=== PATIENT | female | born 1970 | race Caucasian/White ===

== ENCOUNTER 2018-08-17 18:35 | Emergency (ER) | payer OTHER ==
[~2018-08-17] VITALS: Ht 162.6 cm; Wt 64.0 kg
[2018-08-17 18:58] LABS: URINE BILIRUBIN NEGATIVE (Negative); URINE BLOOD TRACE (Negative); URINE CLARITY CLEAR; URINE COLOR YELLOW; URINE GLUCOSE-RANDOM NEGATIVE (Negative); URINE KETONES TRACE (Negative); URINE LEUKOCYTES-REFLEX 1+ (Negative); URINE PROTEIN 1+ (Negative); URINE SPECIFIC GRAVITY 1.025 (1.005-1.030)
[2018-08-17 19:02] LABS: URINE NITRITE-REFLEX POSITIVE (Negative)
[2018-08-17 19:05] LABS: BACTERIA-REFLEX >30 Many /HPF (None Seen); CASTS None Seen /LPF (None Seen); CRYSTALS None Seen /LPF (None Seen); SQUAMOUS NONE SEEN /LPF (0-3); URINE RBC None Seen /HPF (0-2); URINE WBC-REFLEX 6-15 Few /HPF (0-5)
[2018-08-17 19:15] LABS: ABSOLUTE EOSINOPHILS 0.1 thou/uL (0.0-0.7); ABSOLUTE LYMPHOCYTES 1.4 thou/uL (0.8-5.3); ABSOLUTE MONOCYTES 0.5 thou/uL (0.0-1.2); ABSOLUTE NEUTROPHILS 4.3 thou/uL (1.6-8.1); BASOPHILS 0.6 %; EOSINOPHILS 1.9 %; HEMATOCRIT 29.2 % (37.0-47.0); HEMOGLOBIN 8.7 gm/dL (12.0-15.0); LYMPHOCYTES 21.9 %; MCH 19.3 pg (26.0-34.0); MCHC 29.9 g/dL (28.0-37.0); MCV 64.7 fL (80.0-100.0); MONOCYTES 7.2 %; MPV 8.6 fl. (7.2-11.1); NUCLEATED RBCS 0 /100WBC; PLATELET COUNT* 312 thou/uL (150-400); POLYS 68.4 %; RBC 4.51 mil/uL (4.20-5.00); WBC 6.3 thou/uL (4.0-11.0)
[2018-08-17 19:26] LABS: ANION GAP 6 mmol/L (7-16); BUN 7 mg/dL (7-18); CALCIUM 8.1 mg/dL (8.5-10.1); CHLORIDE 107 mmol/L (98-107); CO2 29 mmol/L (21-32); CREATININE 0.6 mg/dL (0.6-1.3); GLUCOSE 82 mg/dL (70-99); SODIUM 142 mmol/L (136-145)
[2018-08-17 19:26] LABS: AMP/METHAMP POSITIVE (Negative); BARBITURATES Negative (Negative); BENZODIAZEPINES Negative (Negative); COCAINE Negative (Negative); METHADONE Negative (Negative); OPIATES Negative (Negative); PCP Negative (Negative); THC POSITIVE (Negative)
[2018-08-17 19:28] LABS: POTASSIUM 2.9 mmol/L (3.5-5.1)
[2018-08-17 19:31] LABS: ALBUMIN 2.5 g/dL (3.4-5.0); ALKALINE PHOSPHATASE 92 U/L (46-116); LIPASE 150 U/L (73-393); SGOT 25 U/L (15-37); SGPT 23 U/L (30-65); TOTAL BILIRUBIN 0.4 mg/dL (<0.1-1.0); TROPONIN-I LEVEL <0.06 ng/mL (<0.06)
[2018-08-17 19:36] LABS: POLYCHROMASIA 1+
[2018-08-17 19:37] LABS: ANISOCYTOSIS 3+; HYPOCHROMASIA 2+; PLATELET ESTIMATE ADEQUATE
[2018-08-17] MEDS ORDERED: BENTYL 20 MG TA20 M1 PO (19:52)
[2018-08-17] MEDS ORDERED: MACROBID 100 M100 M1 PO (19:52)
[2018-08-17 20:10] VITALS: BP 168/87
--- NOTE | 2018-08-18 12:46 | EKG ---
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: [place] : 1970 Requested By: Gilma Tierney Order Number: [id number] MD: Glynn Pineda Measurements Intervals [place] Rate: 74 P: 60 NV: 145 QRS: -57 QRSD: 128 T: -45 QT: 490 QTc: 544 Interpretive Statements Sinus rhythm Probable left atrial enlargement Nonspecific IVCD with LAD Left ventricular hypertrophy Anterior Q waves, possibly due to LVH Nonspecific T abnormalities, inferior leads artifact noted No previous ECG available for comparison Electronically Signed On 08-18-2018 12:46:14 [employer]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
== END 2018-08-17 20:10 | disposition home or self-care (01) ==
LOC: M.ERS 18:35
PROVIDERS: Nurse Practitioner Family
DX: N39.0 Urinary tract infection, site not specified (principal); F17.200 Nicotine dependence, unspecified, uncomplicated; Z88.6 Allergy status to analgesic agent; Z88.0 Allergy status to penicillin; Z86.2 Personal history of diseases of the blood and blood-forming organs and certain disorders involving the immune mechanism

== ENCOUNTER 2020-07-01 17:33 | Emergency (ER) | payer OTHER ==
[~2020-07-01] VITALS: Ht 162.6 cm; Wt 79.4 kg
[~2020-07-01 17:33] MED LIST: BENTYL 20 MG TA20 M1 PO; MACROBID 100 M100 M1 PO
[2020-07-01] MEDS ORDERED: MEDI-MECLIZINE25 MG PO (17:44)
[2020-07-01] MEDS ORDERED: LISINOPRIL10 MG PO (17:45)
[2020-07-01 18:09] LABS: URINE BLOOD NEGATIVE (Negative); URINE CLARITY CLEAR; URINE COLOR YELLOW; URINE GLUCOSE-RANDOM NEGATIVE (Negative); URINE KETONES 2+ (Negative); URINE LEUKOCYTES-REFLEX TRACE (Negative); URINE NITRITE-REFLEX NEGATIVE (Negative); URINE PROTEIN NEGATIVE (Negative); URINE SPECIFIC GRAVITY >= 1.030 (1.005-1.030); URINE UROBILINOGEN 0.2 E.U./dl (0.2-1.0)
[2020-07-01 18:18] LABS: URINE BILIRUBIN 1+ (Negative)
[2020-07-01 18:20] LABS: ICTOTEST (BILI CONFIRMATORY) Negative (Negative)
[2020-07-01 18:22] LABS: CASTS None Seen /LPF (None Seen); SQUAMOUS 4-10 Moderate /LPF (0-3); URINE RBC 0-2 Rare /HPF (0-2); URINE WBC-REFLEX 0-5 Rare /HPF (0-5)
[2020-07-01 18:23] LABS: BACTERIA-REFLEX >30 Many /HPF (None Seen); CRYSTALS None Seen /LPF (None Seen); MUCUS 4-6 Moderate strn/LPF (None Seen)
[2020-07-01 18:25] LABS: ABSOLUTE EOSINOPHILS 0.3 thou/uL (0.0-0.7); ABSOLUTE LYMPHOCYTES 0.7 thou/uL (0.8-5.3); ABSOLUTE MONOCYTES 0.6 thou/uL (0.0-1.2); ABSOLUTE NEUTROPHILS 8.6 thou/uL (1.6-8.1); BASOPHILS 0.1 %; EOSINOPHILS 2.8 %; HEMATOCRIT 33.9 % (37.0-47.0); HEMOGLOBIN 10.4 gm/dL (12.0-15.0); LYMPHOCYTES 6.8 %; MCH 20.3 pg (26.0-34.0); MCHC 30.8 g/dL (28.0-37.0); MONOCYTES 5.9 %; MPV 9.1 fl. (7.2-11.1); NUCLEATED RBCS 0 /100WBC; PLATELET COUNT* 305 thou/uL (150-400); POLYS 84.4 %; RBC 5.14 mil/uL (4.20-5.00); WBC 10.2 thou/uL (4.0-11.0)
[2020-07-01 18:31] LABS: CALCIUM 8.9 mg/dL (8.5-10.1); CREATININE 0.6 mg/dL (0.6-1.3); POTASSIUM 4.2 mmol/L (3.5-5.1)
[2020-07-01 18:37] LABS: ALBUMIN 3.3 g/dL (3.4-5.0); TOTAL BILIRUBIN 0.6 mg/dL (<0.1-1.0); TOTAL PROTEIN 7.3 g/dL (6.4-8.2)
[2020-07-01 19:55] LABS: ANISOCYTOSIS 3+; HYPOCHROMASIA 2+; MICROCYTES 3+; POIKILOCYTOSIS 2+
[2020-07-01] MEDS ORDERED: FLAGYL500 M1 PO (20:31)
[2020-07-01] MEDS ORDERED: PHENERGAN 25 MG25 M1 PO (20:31)
[2020-07-01] MEDS ORDERED: CIPRO500 MG PO (20:31)
[2020-07-01] MEDS ORDERED: PROMS25 WY RECTAL (20:31)
[2020-07-01] MEDS ORDERED: HYDROCODONE-ACE10 ML PO (20:32)
[2020-07-01 20:57] VITALS: BP 183/108
--- NOTE | 2020-07-02 17:27 | EKG ---
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: : 1970 Requested By: Diane Figueroa Order Number: [id number] MD: Fitz Garcia Measurements Intervals [place] Rate: 78 P: 52 [place]: 162 QRS: -48 QRSD: 119 T: 36 QT: 403 QTc: 460 Interpretive Statements Sinus rhythm Incomplete left bundle branch block Left ventricular hypertrophy Compared to ECG 08/17/2018 19:01:52 IVCD persists Q waves no longer present T-wave abnormality no longer present Electronically Signed On 07-02-2020 17:27:36 [employer] M[employer]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
== END 2020-07-01 20:58 | disposition home or self-care (01) ==
LOC: M.ERS 17:33
PROVIDERS: Nurse Practitioner Family
DX: A09 Infectious gastroenteritis and colitis, unspecified (principal); I10 Essential (primary) hypertension; Z90.711 Acquired absence of uterus with remaining cervical stump; Z86.2 Personal history of diseases of the blood and blood-forming organs and certain disorders involving the immune mechanism; Z88.0 Allergy status to penicillin; Z88.6 Allergy status to analgesic agent